=== PATIENT | female | born 1970 | race Caucasian/White ===

== ENCOUNTER 2025-06-26 17:43 | Emergency (ER) | payer BC, SELFPAY ==
[2025-06-26 17:55] VITALS: BP 162/105
[2025-06-26 18:15] LABS: Hematocrit 42.8 % (37.0-47.0); Hemoglobin 15.2 g/dL (12.0-16.0); Mean Corp Hgb Conc. 35.5 g/dL (33.0-37.0); Mean Corpuscular Volume 86.6 fL (81.0-99.0); Nucleated Red Blood Cells % 0 %; Platelet Count 162 10^3/uL (130-400); Red Cell Dist. Width 12.8 % (11.5-14.5)
[2025-06-26 18:32] LABS: ALT (SGPT) 56 U/L (0-35); AST (SGOT) 36 U/L (14-36); Albumin 5.0 g/dl (3.5-5.0); Alkaline Phosphatase 94 U/L (38-126); Blood Urea Nitrogen 16 mg/dl (7-17); Calcium 9.7 mg/dl (8.4-10.2); Carbon Dioxide 21 mmol/L (22-30); Chloride 108 mmol/L (98-107); Glucose 131 mg/dl (70-99); Potassium 3.5 mmol/L (3.5-5.1); Sodium 139 mmol/L (135-145); Total Protein 7.7 g/dl (6.3-8.2); eGFR > 60.00
--- NOTE | 2025-06-26 19:30 | ED.GENMED ---
History of Present Illness
General
Chief Complaint: Abdominal Symptoms
Source: patient and spouse
Exam Limitations: none
Time Seen by Provider: 06/26/25 19:16
Nursing documentation reviewed up to this point in time: agreed with
History of Present Illness
History of Present Illness:
54-year-old female with history of hypertension presents to the ER for evaluation after some GI symptoms earlier this evening. She says that she was at a libertarian and drank about a quarter of a hard cider when she began to feel stomach cramping�she
says that she went to the toilet and had a few episodes of diarrhea and multiple episodes of vomiting. She says that total duration of symptoms was less than an hour and by the time EMS arrived she says symptoms had greatly improved. She says
symptoms have resolved here in the emergency room and she now feels much better. Denies any abdominal pain or nausea at present. She says she was in her normal state of health prior to onset she thinks she may have been sensitive to the cider.
She denies any other acute complaints. Only prior abdominal surgery is a in the past.
Review of Systems
Review of Systems
All Other Systems: ROS reviewed and negative except as documented in HPI and ROS
Constitutional: Denies fever
Respiratory: Denies trouble breathing
Cardiac: Denies chest pain
ABD/GI: Reports abdominal pain, nausea, vomiting and diarrhea
: Denies flank pain
Musculoskeletal: Denies neck pain or back pain
Neurological: Denies dizzy or headache
Phy Exam
Physical Exam
Physical Exam:
General: Awake, alert, oriented x3; no acute distress
Head: Normocephalic, atraumatic
Eyes: Conjunctiva normal, sclera anicteric
Throat: Airway intact, handling secretions
Neck: Trachea midline, supple without meningismus
Lungs: Clear to auscultation bilaterally, no wheezing, rales, rhonchi
Heart: Regular rate and rhythm, no murmurs, gallops, or rubs
Abd: Soft, non distended, nontender to deep palpation
Neuro: Grossly intact
Skin: Warm and dry
Extremities: Warm and perfused
Scores
Heart Failure Risk
Heart Failure Risk Score: Not Applicable
Heart Score for Chest Pain Patients
STEMI patient?: Not applicable
Withdrawal Assessment of Alcohol
Withdrawal Assessment Completed?: Not applicable
Course
Orders/Labs/Results
Orders:
Orders
06/26/25 18:01
Complete Blood Count/With Diff Urgent
Comprehensive Metabolic Panel Urgent
Lipase Urgent
Comment: ADD ON
06/26/25 19:29
Encourage PO Hydration-Treatme ONCE
06/26/25 19:31
Add On- LAB Urgent
Tests Added?: lipase
Abnormal Lab Results
06/26/25
18:01
WBC 11.1 H 10^3/uL
(4.8-10.8)
MPV 11.5 H fL
(7.4-10.4)
Absolute Neuts (auto) 9.0 H 10^3/uL
(1.4-6.5)
Absolute Monos (auto) 0.7 H 10^3/uL
(0.1-0.6)
Neutrophils % 80.9 H %
(42.2-75.2)
Lymphocytes % 11.8 L %
(20.5-51.1)
Chloride 108 H mmol/L
(98-107)
Carbon Dioxide 21 L mmol/L
(22-30)
Glucose 131 H mg/dl
(70-99)
ALT 56 H U/L
(0-35)
06/26/25 18:01
06/26/25 18:01
Vital Signs
Initial and Last Documented VS:
Initial Vital Signs
Temp Pulse Resp BP Pulse Ox
36.6 C 98 18 162/105 98
06/26/25 17:55 06/26/25 17:55 06/26/25 17:55 06/26/25 17:55 06/26/25 17:55
Last Documented Vital Signs
Temp Pulse Resp BP Pulse Ox
36.6 C 98 18 162/105 98
06/26/25 17:55 06/26/25 17:55 06/26/25 17:55 06/26/25 17:55 06/26/25 19:31
MDM/Problems Addressed
Differential Diagnosis Includes:
Gastritis, enteritis, cholelithiasis/cholecystitis, pancreatitis
MDM/Problems Addressed:
54-year-old female presents for evaluation of nausea, vomiting, diarrhea and abdominal cramping that lasted less than an hour after drinking a hard cider. Symptoms have completely resolved. She is hypertensive but otherwise normal vitals.
Physical exam as above�notably benign abdominal exam. She had lab work sent in triage including a CBC which showed a marginal leukocytosis, CMP which showed marginal metabolic acidosis nongap from GI losses but otherwise unremarkable. Added
lipase. At this point with complete resolution of symptoms and benign abdominal exam no clear indication for emergent abdominal imaging. Will trial p.o. and reassess.
Patient tolerating p.o. here no additional vomiting says she is feeling well and requesting discharge. Stable for discharge advised regarding bland diet, trial of Pepcid. Spoke about return precautions all questions answered.
*Pulse Oximetry
SaO2: 98
Oxygen Mode of Delivery: Room air
Patient hypoxic: no (98%)
*Critical Care Note
Total Time (30-74mins, 75-104mins- exclusive of procedures): Not Applicable
Data Reviewed
Source: patient and spouse
Further Testing Considered But Not Given:
Considered abdominal ultrasound, considered abdominal CT
ED Attending Note
-
Portions of this chart may have been created with voice recognition software.� Occasional wrong word or��sound alike� substitutions may have occurred due to the inherent limitations of voice recognition software.
Discharge Plan
Departure
Patient Disposition: Home (Routine Discharge)
Date of Disposition: 06/26/25
Time of Disposition: 20:16
Patient with high blood pressure during this ER visit?: Yes
Discharge Problem:
Abdominal pain, Nausea vomiting and diarrhea
Instructions: [place] Diet, Gastritis - ED (DC)
Activity Restrictions/Additional Instructions:
You should keep a bland diet for the next few days and you can take [id number] Pepcid once daily for the next 2 weeks. Avoid alcohol for the next 2 weeks. You should follow-up with your primary doctor in the next week or 2 for reassessment
after ER visit. Please note that your blood pressure was high in the ER and it should be rechecked with your primary doctor.
Thank you for visiting the Emergency Department at [facility].
1. Please schedule a follow up appointment as directed. Call first thing tomorrow morning to make an appointment.
2. If indicated, please take your medications as instructed and indicated on discharge paperwork.
3. If any of your symptoms do not improve, or persist, or become more severe within 6-12 hours, please return to the emergency department for further care.
4. Please return to the emergency department if you develop a headache, neck pain/stiffness, fever greater than 100.4F, chest pain, shortness of breath, persistent nausea, vomiting, slurred speech, difficulty walking, numbness/tingling, weakness,
signs of infection or any other symptoms that are worrisome to you.
Please call [phone] if you have any questions.
Interventions
Interventions:
*Risk Screen - Suicide Last Done: 06/26/25 17:58
*Neglect/Abuse Screening Last Done: 06/26/25 17:58
Discharge Date and Time
Print Language: LAO
[2025-06-26 19:43] LABS: Lipase 133 U/L (23-300)
[2025-06-26 20:25] VITALS: BP 173/96
== END 2025-06-26 20:39 | disposition home or self-care (01) ==
LOC: EMR 17:43
PROVIDERS: Emergency Medicine; EMERGENCY PHYSICIAN Emergency Medicine
DX: R10.9 Unspecified abdominal pain (principal); R11.2 Nausea with vomiting, unspecified; R19.7 Diarrhea, unspecified; D72.829 Elevated white blood cell count, unspecified; E87.20 Acidosis, unspecified; I10 Essential (primary) hypertension
CPT/HCPCS: 99283; 80053; 83690; 85025